=== PATIENT | female | born 1965 | race Caucasian/White ===

== ENCOUNTER → 2017-06-11 | Outpatient (CLI) | payer OTHER ==
[~2017-06-11] MED LIST: DICL75 PO; LEVO.15 PO
--- NOTE | 2017-06-11 15:28 | RADRPT ---
EXAM DATE/TIME: 06/11/2017 14:00 [place] COMPARISON: No previous studies available for comparison. INDICATIONS : Shoulder pain after fall. MEDICAL HISTORY : None. SURGICAL HISTORY : Pacemaker. Coronary artery stent. Thyroidectomy. Hysterectomy, cholecystectomy and right knee. ENCOUNTER: Initial ACUITY: 1 month PAIN SCORE: 7/10 LOCATION: Left Shoulder. TECHNIQUE: Multiplanar, multisequence MRI examination was performed without contrast. FINDINGS: A there are some areas of susceptibility artifact related to greater tuberosity and the glenoid consi stent with previous surgery ROTATOR CUFF: The supraspinatus, infraspinatus, subscapularis, and teres minor tendons are intact. LABRUM: Labrum is within normal limits. MARROW/CARTILAGE: Bone marrow signal is homogeneous. Glenohumeral joint articular cartilage is within normal limits. OTHER: Acromioclavicular joint is postoperative Proximal biceps tendon is intact. CONCLUSION: Postoperative changes in the shoulder. No significant edema or evidence of bony fracture. Mild osteoa rthritis glenohumeral joint.. Ayan Pablo MD on June 11, 2017 at 15:27 Board Certified Radiologist. This report was verified electronically.
== END ==
LOC: HRAD 13:08
PROVIDERS: ATTEND Orthopaedic Surgery
DX: M25.512 Pain in left shoulder (principal); W19.XXXA Unspecified fall, initial encounter
CPT/HCPCS: 73221